=== PATIENT | male | born 1980 | race Caucasian/White ===

== ENCOUNTER 2018-02-22 08:06 | Emergency (ER) | payer BC ==
[~2018-02-22] VITALS: Ht 177.8 cm; Wt 126.6 kg
[2018-02-22 08:10] VITALS: TEMP 36.6; Ht 177.8 cm; Wt 126.6 kg
[2018-02-22] MEDS ORDERED: KETOROLAC TROMETHAMINE 60 MG/2 ML VIAL IM STA (08:29)
[2018-02-22] MEDS ORDERED: CYCLOBENZAPRINE HCL 10 MG TAB PO STA (08:29)
[2018-02-22] MEDS ORDERED: CYCL10TA6 PO (08:32)
[2018-02-22] MEDS ORDERED: TRAM-10 PO (08:32)
[2018-02-22 08:43] VITALS: BP 122/77; PULSE 57; O2SAT 97
--- NOTE | 2018-02-22 15:31 | EMERGENCY ROOM VISIT NOTE ---
History First contact with patient: 08:13 Chief Complaint: FLANK PAIN Stated Complaint: EXTREME BACK PAIN History of Present Illness The patient is a 37 year old male who presents to the Emergency Room with complaints of moderately severe left-sided and central back pain. The patient reports that he injured his back on Monday while moving kayaks in his garage. The patient reports feeling something pop while doing so. The patient denies any pain extending into the neck or lower back region. He denies any shortness of breath, abdominal pain, nausea or vomiting. He rates his discomfort an 8 out of 10. Review of Systems 10 system review was performed and was negative except for pertinent positives and negatives as indicated in history of present illness Past Medical/Surgical History Medical Problems: (1) No significant past medical history Surgical Problems: (1) No history of previous surgery Family History Unremarkable Social History Smoking Status: Never Smoker Alcohol Use: occasionally Marital Status: Housing Status: lives with family Occupation Status: employed Current/Historical Medications Scheduled PRN Cyclobenzaprine Hcl (Flexeril), 10 MG PO TID PRN for spasm Tramadol (Ultram), 1-2 TAB PO Q4H PRN for Pain Physical Exam Vital Signs Date Time Temp Pulse Resp B/P (MAP) Pulse Ox O2 Delivery O2 Flow Rate FiO2 02/22/18 08:43 57 18 122/77 97 02/22/18 08:10 36.6 66 20 134/81 98 Room Air Physical Exam CONSTITUTIONAL: Well-developed male, alert and oriented X 3 with positive affect. She appears in moderate discomfort from pain. HEENT: Normocephalic, atraumatic. Pupils equal, round and reactive. NECK: Full active range of motion without discomfort. RESPIRATORY: Clear to auscultation bilaterally with no wheezing, crackles, rhonchi or stridor. CARDIOVASCULAR: Regular rate and rhythm with no murmurs, rubs or gallops. GASTROINTESTINAL: Bowel sounds present in all quadrants. Soft and nontender to palpation. MUSCULOSKELETAL: Examination shows notable tenderness to palpation of the left lower thoracic paraspinous muscle with mild rigidity. No ecchymosis noted. The patient has no right-sided tenderness to palpation. No tenderness to palpation through the SI joints or lower lumbar spine. INTEGUMENTARY: No rash or other significant dermatologic conditions noted. NEUROLOGIC: No focal neurologic deficits noted. Medical Decision & Procedures Medications Administered Medications (Trade) Dose Ordered Sig/Mike Route Start Time Stop Time Status Last Admin Dose Admin Ketorolac Tromethamine (Toradol Inj) 60 mg NOW STAT IM 02/22/18 08:29 02/22/18 08:31 DC 02/22/18 08:36 60 MG Cyclobenzaprine HCl (Flexeril Tab) 10 mg NOW STAT PO 02/22/18 08:29 02/22/18 08:31 DC 02/22/18 08:35 10 MG ED Course Patient history and physical exam were performed. Nurse's notes were reviewed. Vital signs were reviewed and were normal. History and physical exam are consistent with thoracic myofascial strain. The patient was administered IM Toradol and Flexeril 10 mg orally. The patient will be provided prescriptions for Flexeril and Ultram. He was also encouraged alternate ibuprofen and Tylenol for baseline pain relief. The patient was encouraged to follow-up with his PCP if symptoms persist, returning to the emergency department for any progressively worsening symptoms or other concerning symptoms such as chest pain , shortness of breath, abdominal pain or fever. The patient was happy with plan of care, voiced understanding of all discharge instructions, and rated his discomfort a 6 out of 10 at the conclusion of my exam. Medical Decision Clinical exam is consistent with thoracic strain as his pain is reproducible with movement and palpation. He does not have any skin changes to suggest cellulitis, abscess, hematoma or herpes zoster. I do not suspect pyelonephritis , ureteral colic or other intra-abdominal etiologies. [place] [facility] Monitoring Program Search Results: patient reviewed within database, no issues identified Medication Reconcilliation Current Medication List: was personally reviewed by me Blood Pressure Screening Patient's blood pressure: Normal blood pressure Impression Primary Impression: Thoracic myofascial strain Departure Information Dispostion Home / Self-Care Prescriptions Tramadol (Ultram) 50 Mg Tab 1-2 TAB PO Q4H Y for Pain, #20 TAB For Initial Treatment Prov: Mumtaz Casiano PA 02/22/18 Cyclobenzaprine Hcl (FLEXERIL) 10 Mg Tab 10 MG PO TID Y for spasm, #15 TAB Prov: Mumtaz Casiano PA 02/22/18 Referrals Gerry Hackett PA-C (PCP) No Doctor, Assigned Forms HOME CARE DOCUMENTATION FORM, IMPORTANT VISIT INFORMATION Patient Instructions [facility] Additional Instructions Alternate ice and heat to the back. Ibuprofen 800 mg and/or Tylenol 1000 mg every 8 hours. You may also alternate these medications for more effective pain relief: Ibuprofen --4 HRS--> Tylenol --4 HRS--> ibuprofen --4 HRS--> Tylenol .... Take Flexeril as prescribed to relieve muscle spasm. Do not drink alcohol or drive while taking Flexeril. Ultram if needed for worse pain. Follow-up with your family doctor if symptoms are not improving within the next 3-5 days. Problem Qualifiers Primary Impression: Thoracic myofascial strain Encounter type: initial encounter Qualified Codes: S29.019A - Strain of muscle and tendon of unspecified wall of thorax, initial encounter
== END 2018-02-22 08:44 | disposition home or self-care (01) ==
LOC: C.EDB 08:08
DX: S29.019A Strain of muscle and tendon of unspecified wall of thorax, initial encounter (principal); X50.0XXA Overexertion from strenuous movement or load, initial encounter; Y92.015 Private garage of single-family (private) house as the place of occurrence of the external cause